=== PATIENT | male | born 1990 | race Caucasian/White ===

== ENCOUNTER 2021-10-13 13:47 | Inpatient (IN) | payer MEDICAID ==
[~2021-10-13] VITALS: Ht 165.1 cm; Wt 362.6 kg
[2021-10-13] MEDS ORDERED: ASPIRIN 81MG TABLET PO ONE (17:30)
[2021-10-13] MEDS ORDERED: NITROGLYCERIN 0.4MG TABLET SL SL PRN ×2 (17:30→21:45)
[2021-10-13 17:38] LABS: BASOPHILS % 0.3 % (0.0-2.0); EOSINOPHILS % 0.1 % (0.0-5.0); HEMATOCRIT. 49.2 % (42.0-52.0); HEMOGLOBIN. 17.1 g/dL (14.0-18.0); LYMPHOCYTES % 18.9 % (20.0-50.0); MEAN CORPUSCULAR HEMOGLOBIN 31.1 pg (28.0-32.0); MEAN PLATELET VOLUME 7.3 fl (7.4-10.4); NEUTROPHILS % 74.7 % (40.0-76.0); PLATELET 289 x1000/uL (130-400); RED BLOOD CELL COUNT 5.52 mill/uL (4.7-6.1); RED CELL DISTRIBUTION WIDTH 14.2 % (11.6-14.6)
[2021-10-13 17:46] LABS: CHLORIDE 108 mEq/L (98-107)
[2021-10-13 17:55] LABS: D-DIMER < 0.19 mg/L FEU (<0.50); PARTIAL THROMBOPLASTIN TIME 30.6 sec (23.4-31.0); PROTHROMBIN TIME 10.8 sec (9.6-11.0)
[2021-10-13] MEDS ORDERED: ENOXAPARIN 100MG/ML SYR SUBCUT ONE (20:00)
[2021-10-13] MEDS ORDERED: KETOROLAC 15MG/ML VIAL IV PRN (21:45)
[2021-10-13] MEDS ORDERED: DOCUSATE SODIUM 100MG CAPSULE PO PRN (21:45)
[2021-10-13] MEDS ORDERED: GUAIFENESIN 200MG/10ML SUGAR FREE UDC PO PRN (21:45)
[2021-10-13] MEDS ORDERED: ACETAMINOPHEN 325MG TABLET PO PRN ×2 (21:45)
[2021-10-13] MEDS ORDERED: CLONIDINE 0.1MG TABLET PO PRN (21:45)
[2021-10-13] MEDS ORDERED: ONDANSETRON HCL 4MG/2ML INJ IV PRN (21:45)
[2021-10-13] MEDS ORDERED: ZOLPIDEM TARTRATE 5MG TABLET PO PRN (21:45)
[2021-10-13] MEDS ORDERED: IPRATROPIUM/ALBUTEROL 0.5-3(2.5)MG/3ML NEB NEB PRN (21:45)
[2021-10-13] MEDS ORDERED: MAGNESIUM/ALUMINUM HYDROXIDE/SIMETHICONE 30ML UDC PO PRN (21:45)
[2021-10-13 23:20] VITALS: BP 141/99
[2021-10-14 00:45] VITALS: BP 141/99
[2021-10-14 01:53] LABS: CREATINE KINASE 99 IU/L (39-308)
[2021-10-14 01:54] LABS: CREATINE KINASE MB FRACTION < 1.0 ng/mL (0.5-3.6)
[2021-10-14 04:00] VITALS: BP 136/84
[2021-10-14 07:28] LABS: BASOPHILS % 0.7 % (0.0-2.0); EOSINOPHILS % 1.1 % (0.0-5.0); HEMATOCRIT. 45.8 % (42.0-52.0); LYMPHOCYTES % 34.8 % (20.0-50.0); MEAN CORPUSCULAR VOLUME 88.7 fL (80.0-94.0); MEAN PLATELET VOLUME 7.4 fl (7.4-10.4); MONOCYTES % 10.5 % (2.0-8.0); NEUTROPHILS % 52.9 % (40.0-76.0); PLATELET 262 x1000/uL (130-400); RED BLOOD CELL COUNT 5.16 mill/uL (4.7-6.1); RED CELL DISTRIBUTION WIDTH 14.5 % (11.6-14.6)
[2021-10-14 07:40] LABS: CHLORIDE 108 mEq/L (98-107)
[2021-10-14 07:45] LABS: PHOSPHORUS 4.4 mg/dL (2.5-4.9)
[2021-10-14 07:49] LABS: CREATINE KINASE 98 IU/L (39-308)
[2021-10-14 07:50] LABS: CREATINE KINASE MB FRACTION < 1.0 ng/mL (0.5-3.6)
[2021-10-14 08:00] VITALS: BP 123/90
[2021-10-14] MEDS: ASPIRIN 325MG EC TABLET PO SCH (09:24)
[2021-10-14] MEDS: METOPROLOL TARTRATE 25MG TABLET PO SCH ×2 (09:25→21:55)
[2021-10-14] MEDS: ENOXAPARIN 100MG/ML SYR SUBCUT SCH ×2 (09:25→21:56)
[2021-10-14] MEDS: FAMOTIDINE 20MG TABLET PO SCH ×2 (09:26→21:55)
[2021-10-14 12:00] VITALS: BP 113/77
[2021-10-14 16:00] VITALS: BP 124/77
[2021-10-14 20:00] VITALS: BP 117/80
[2021-10-15] VITALS: BP 110/67
[2021-10-15 04:00] VITALS: BP 106/68
[2021-10-15 08:00] VITALS: BP 121/86
[2021-10-15] MEDS: ASPIRIN 325MG EC TABLET PO SCH (10:16)
[2021-10-15] MEDS: METOPROLOL TARTRATE 25MG TABLET PO SCH (10:16)
[2021-10-15] MEDS: FAMOTIDINE 20MG TABLET PO SCH (10:17)
[2021-10-15] MEDS: ENOXAPARIN 100MG/ML SYR SUBCUT SCH (10:18)
[2021-10-15] MEDS ORDERED: METO25TA6 MT (10:36)
[2021-10-15] MEDS ORDERED: APIX5TAB MT (10:36)
[2021-10-15 13:31] VITALS: BP_DIAS 121
== END 2021-10-15 18:00 | disposition home or self-care (01) | DRG 203 ==
LOC: ER 13:47 → 7EST 19:54 → EDBEDREQTM 19:56 → EDBEDREQ 19:56 → ENRESERV 21:52
PROVIDERS: ADMIT Internal Medicine; ATTEND Internal Medicine
DX: M94.0 Chondrocostal junction syndrome [Tietze] (principal); Z86.74 Personal history of sudden cardiac arrest; Z68.45 Body mass index [BMI] 70 or greater, adult; I47.1 Supraventricular tachycardia; E66.9 Obesity, unspecified; J45.909 Unspecified asthma, uncomplicated; Z86.16 Personal history of COVID-19; Z86.711 Personal history of pulmonary embolism
CPT/HCPCS: 36415; 71045; 71275; 80053; 80320; 82550; 82553; 83735; 83880; 84100; 84484; 85025; 85379; 93005; 93970; 99285; J1650; G0480